=== PATIENT | female | born 1965 | race Caucasian/White ===

== ENCOUNTER 2023-06-08 09:10 | Emergency (ER) | payer MEDICAID ==
--- NOTE | 2023-06-08 09:13 | ERPHSYRPT ---
- History of Present Illness Time Seen by Provider: 06/08/23 09:13 Source: patient Exam Limitations: no limitations Physician History: This is a 57-year-old white female patient who does not have a primary care provider and injured back in December 2022. She corrected herself and that she did not fall in December 2022 but she was shoveling and digging when she first felt the pain. Her low back pain seemed to improve within the last month. However, in the last 2 to 3 days it was worsening. She sought medical evaluation at [facility] outpatient clinic where they gave her an injection of Toradol and then provided her with a prescription for muscle relaxant. No radiographic studies were performed. Patient states that the pain is in the lower back and shoots down posteriorly around her left buttock into her posterior left upper leg. She has no urinary incontinence. She has no bowel incontinence. She has no constipation. She has no numbness in her feet. Timing/Duration: day(s), worse Method of Injury: lifting, twisted, turning Quality: sharp, stabbing Back Pain Location: lumbar spine, paraspinous muscles Back Pain Radiation: buttocks (Left), upper legs (Posterior on the left) Severity of Pain-Max: moderate Modifying Factors: Improves With: movement Associated Symptoms: lower back pain, muscle spasms, No urinary incontinence, No loss of bowel control, No constipation, No problems urinating, No numbness in legs/feet Previous symptoms: same symptoms as today, no recent treatment Allergies/Adverse Reactions: No Known Drug Allergies Allergy (Unverified 06/08/23 09:29) Travel Risk - International Travel Have you traveled outside of the country in past 3 weeks: No - Coronavirus Screening Are you exhibiting any of the following symptoms?: No Close contact with a COVID-19 positive Pt in past 14-21 Days: No - Review of Systems Constitutional: No Symptoms Eyes: No Symptoms Ears, Nose, & Throat: No Symptoms Respiratory: No Symptoms Cardiac: No Symptoms Abdominal/Gastrointestinal: No Symptoms Genitourinary Symptoms: No Symptoms Musculoskeletal: Back Pain Skin: No Symptoms Neurological: No Symptoms Psychological: No Symptoms Endocrine: No Symptoms Hematologic/Lymphatic: No Symptoms Immunological/Allergic: No Symptoms All Other Systems: Reviewed and Negative - Past Medical History Pertinent Past Medical History: No - Past Surgical History Past Surgical History: Yes - Nursing Vital Signs Nursing Vital Signs: Initial Vital Signs Temperature 97.5 F 12/29/23 09:25 Pulse Rate 76 06/08/23 09:25 Respiratory Rate 18 06/08/23 09:25 Blood Pressure 179/93 06/08/23 09:25 O2 Sat by Pulse Oximetry 98 06/08/23 09:25 Pain Scale Pain Intensity [Left Back] 10 Pain Intensity 7 - Physical Exam General Appearance: no apparent distress, alert, anxiety Eye Exam: PERRL/EOMI, eyes nml inspection Ears, Nose, Throat Exam: normal ENT inspection, moist mucous membranes Neck Exam: normal inspection, non-tender, supple, full range of motion Respiratory Exam: airway intact, No chest tenderness, No respiratory distress Cardiovascular Exam: normal peripheral pulses Gastrointestinal Exam: No tenderness Pelvic Exam: not done Rectal Exam: not done Back Exam: normal inspection, decreased range of motion, muscle spasm, No CVA tenderness, No vertebral tenderness, No point tenderness Extremity Exam: normal inspection, normal range of motion, pelvis stable, No deformities Neurologic Exam: alert, oriented x 3, cooperative, guest service host II-XII nml as tested, normal mood/affect, nml cerebellar function, nml station & gait, sensation nml Skin Exam: normal color, warm, dry Lymphatic Exam: No adenopathy SpO2 Interpretation: normal O2 Delivery: Room Air - Course Nursing assessment & vital signs reviewed: Yes Ordered Tests: Active Orders 24 hr Category Date Time Status LUMBAR LIMITED (2 OR 3 VIEWS) Stat Exams 06/08/23 09:35 Taken Medication Summary Discontinued Medications Generic Name Dose Route Start Last Admin Trade Name Rahulq PRN Reason Stop Dose Admin Methylprednisolone Sodium 0 mg 06/08/23 09:37 06/08/23 09:47 Succinate 125 mg/ Sterile IM 06/08/23 09:38 125 mg Water 2 ml STAT ONE Administration Hydromorphone HCl 0.5 mg 06/08/23 09:36 06/08/23 09:48 Hydromorphone 1 Mg/1ml Inj IM 06/08/23 09:37 0.5 mg STAT ONE Administration Hydromorphone HCl Confirm 06/08/23 09:40 Hydromorphone 1 Mg/1ml Inj Administered 06/08/23 09:41 Dose 1 mg .ROUTE .STK-MED ONE Orphenadrine Citrate 60 mg 06/08/23 09:35 06/08/23 09:47 Orphenadrine Citrate 60 Mg/2 Ml Vial IM 06/08/23 09:36 60 mg STAT ONE Administration Orphenadrine Citrate Confirm 06/08/23 09:39 Orphenadrine Citrate 60 Mg/2 Ml Vial Administered 06/08/23 09:40 Dose 60 mg .ROUTE .STK-MED ONE Prochlorperazine Edisylate 5 mg 06/08/23 09:35 06/08/23 09:47 Prochlorperazine Edisylate 10 Mg/2 Ml Vial IM 06/08/23 09:36 5 mg STAT ONE Administration Prochlorperazine Edisylate Confirm 06/08/23 09:40 Prochlorperazine Edisylate 10 Mg/2 Ml Vial Administered 06/08/23 09:41 Dose 10 mg .ROUTE .STK-MED ONE Sterile Water Confirm 06/08/23 09:39 Water For Injection,Sterile 10 Ml Vial Administered 06/08/23 09:40 Dose 10 ml IJ .STK-MED ONE - Progress Progress: improved, pain not gone completely Progress Note: 06/08/23 09:42 This patient's medical issue is 1 of low complexity the level of complexity in the workup performed is based on review of the patient's past medical history, review the patient's medication list, review of the patient's drug allergy list, history of present illness and physical findings on examination. Workup in this patient includes lumbar spine x-rays. Will also provide injectable, intramuscular Compazine, Dilaudid, orphenadrine and oral Zofran ODT. Patient is aware I will not be providing her any narcotics as an outpatient. However, I will remotely send a prescription for orphenadrine and steroids to her pharmacy. Patient is aware that the MRI test is an outpatient test and not emergency room radiographic study. She does not have a primary care provider and we will provide her with a list of primary care providers who are accepting patients. We will also have the front end engineer individuals help the patient in securing some type of insurance by providing the patient with paperwork to fill out here while she is in the emergency department. The patient is aware that she needs to make sure she follows up with the insurance individuals. 06/08/23 10:36 I interpreted the lumbar x-ray series. There is no evidence of any acute fracture or subluxation. Counseled pt/family regarding: diagnosis, need for follow-up, rad results Medical Desision Making - Diagnostic Testing Diagnostic test were ordered, analyzed, and reviewed by me: Yes Radiological Interpretation: Reviewed by me, Teleradiologist Report - Risk of complications The pt has a mod risk of morbidity or mortality based on: Need for prescription drug management - Departure Departure Disposition: Home Clinical Impression: Acute exacerbation of chronic low back pain, Hypertension Condition: Stable Critical Care Time: No Additional Instructions: Take your medications as prescribed. Stop any prior muscle relaxant and use the medication that I remotely sent to your pharmacy. Call and make an appointment with a primary care provider (list provided) for the next 3 to 5 days to discuss back pain management and hypertension issues. Prescriptions: Prednisone 10 mg [Deltasone 10 mg] 10 mg PO TID #12 tablet Orphenadrine Citrate 100 mg [Norflex 100 MG Tablet] 100 mg PO BID #10 tab
[2023-06-08 09:26] VITALS: TEMP 97.5
[2023-06-08] MEDS ORDERED: Compazine 10 MG/2 ML IM ONE (09:35)
[2023-06-08] MEDS ORDERED: Norflex 60 MG/2 ML IM ONE (09:35)
[2023-06-08] MEDS ORDERED: Hydromorphone 1 mg/ml Injection IM ONE (09:36)
[2023-06-08] MEDS ORDERED: solu-MEDROL 125 MG, Sterile H2O 10 ml 2 ML IM ONE ×2 (09:37)
[2023-06-08] MEDS ORDERED: Norflex 60 MG/2 ML ONE (09:39)
[2023-06-08] MEDS ORDERED: Sterile H2O 10 ml IJ ONE (09:39)
[2023-06-08] MEDS ORDERED: Compazine 10 MG/2 ML ONE (09:40)
[2023-06-08] MEDS ORDERED: Hydromorphone 1 mg/ml Injection ONE (09:40)
--- NOTE | 2023-06-08 10:38 | XRAY ---
Indication: Low back pain. Comparison: None 3 view lumbar spine demonstrates 6 lumbar segments with partial sacralized L6. Mild L4-L6 degenerative changes with disc space narrowing and endplate sclerosis/spurring. 3-4 mm anterolisthesis L4 on L5. No acute fracture or suspicious bony lesions. Minimal aortic calcifications. Incidental mild diffuse scattered colonic fecal debris and small left lung base calcified granuloma. Impression: Nonacute lumbar spine with chronic features. Incidental fecal stasis.
[2023-06-08 10:59] VITALS: BP 161/100; PULSE 72; RESP 14; O2SAT 94
== END 2023-06-08 11:00 | disposition home or self-care (01) ==
LOC: ED 09:10
DX: G89.29 Other chronic pain (principal); M54.50 Low back pain, unspecified; I10 Essential (primary) hypertension; Z79.52 Long term (current) use of systemic steroids
CPT/HCPCS: 72100; 96372; 99284; J1170; J2360; J2930

== ENCOUNTER 2023-06-15 15:27 | Emergency (ER) | payer MEDICAID ==
[2023-06-15] MEDS ORDERED: Hydromorphone 1 mg/ml Injection IV ONE (15:40)
[2023-06-15] MEDS ORDERED: Compazine 10 MG/2 ML IV ONE (15:40)
[2023-06-15] MEDS ORDERED: Sodium Chloride 0.9% 1000 ML 1,000 ML IV STA (15:40)
--- NOTE | 2023-06-15 15:40 | ERPHSYRPT ---
- History of Present Illness Time Seen by Provider: 06/15/23 15:39 Source: patient, EMS Exam Limitations: no limitations Patient Subjective Stated Complaint: syncope Triage Nursing Assessment: patient was at pio piedra's office for sciatica pain and became pale/diaphoretic and had a syncopal episode. ambulance was called and pateint was brought to the ER Physician History: This is an obese 57-year-old white female patient who was seen by me for the same issue on 06/08/2023. The lumbar x-ray series was performed and interpreted by the radiologist and this was a normal, nonacute study. Patient was at nurse derian Piedra's office for her first, initial visit with this provider. In the office, the patient had severe pain going down her left buttock and left leg. She became pale and diaphoretic and "passed out". She did not hit her head. She did not lose consciousness. Patient denies chest pain patient denies shortness of breath. Patient was brought to the emergency department by the paramedics who provided additional, independent history of the events that occurred at the office of nurse derian Piedra. Patient has a history of chronic low back pain and hypertension. On 06/08/2023, patient received a prescription for prednisone and orphenadrine Timing/Duration: today Method of Injury: other (No fall or new injury) Quality: sharp, stabbing Back Pain Location: lumbar spine Back Pain Radiation: buttocks (Left side), upper legs (Left side) Severity of Pain-Max: moderate Severity of Pain-Current: moderate Modifying Factors: Improves With: movement Associated Symptoms: lower back pain, muscle spasms, No urinary incontinence, No loss of bowel control, No numbness in legs/feet, No tingling in legs/feet Previous symptoms: same symptoms as today, recently seen, recently treated Allergies/Adverse Reactions: No Known Drug Allergies Allergy (Unverified 06/15/23 16:26) Hx Influenza Vaccination/Date Given: No Hx Pneumococcal Vaccination/Date Given: No Travel Risk - International Travel Have you traveled outside of the country in past 3 weeks: No - Coronavirus Screening Are you exhibiting any of the following symptoms?: No Close contact with a COVID-19 positive Pt in past 14-21 Days: No - Vaccine Status Have you recieved a Covid-19 vaccination: No - Review of Systems Constitutional: No Symptoms Eyes: No Symptoms Ears, Nose, & Throat: No Symptoms Respiratory: No Symptoms Cardiac: No Symptoms Abdominal/Gastrointestinal: No Symptoms Genitourinary Symptoms: No Symptoms Musculoskeletal: Back Pain, No Fall, No Injury Skin: No Symptoms Neurological: No Symptoms Psychological: No Symptoms Endocrine: No Symptoms Hematologic/Lymphatic: No Symptoms Immunological/Allergic: No Symptoms All Other Systems: Reviewed and Negative - Past Medical History Pertinent Past Medical History: No - Past Surgical History Past Surgical History: Yes Female Surgical History: Hysterectomy - Social History Smoking Status: Never smoker Exposure to second hand smoke: No Drug Use: marijuana Patient Lives Alone: No - Nursing Vital Signs Nursing Vital Signs: Initial Vital Signs Pulse Rate 75 06/15/23 15:31 Respiratory Rate 14 06/15/23 15:31 Blood Pressure 181/112 06/15/23 15:31 O2 Sat by Pulse Oximetry 99 06/15/23 15:31 Pain Scale Pain Intensity 10 - Physical Exam General Appearance: mild distress (To moderate), alert, anxiety, obese Eye Exam: PERRL/EOMI, eyes nml inspection Ears, Nose, Throat Exam: normal ENT inspection, moist mucous membranes Neck Exam: normal inspection, non-tender, supple, full range of motion Respiratory Exam: normal breath sounds, lungs clear, airway intact, No chest tenderness, No respiratory distress Cardiovascular Exam: regular rate/rhythm, normal heart sounds, normal peripheral pulses Gastrointestinal Exam: soft, normal bowel sounds, No tenderness Pelvic Exam: not done Rectal Exam: not done Back Exam: normal inspection, decreased range of motion, muscle spasm, No CVA tenderness Extremity Exam: normal inspection, normal range of motion, pelvis stable Neurologic Exam: alert, oriented x 3, cooperative, lumpia wrapper maker II-XII nml as tested, normal mood/affect, nml cerebellar function, nml station & gait, sensation nml Skin Exam: normal color, warm, dry Lymphatic Exam: No adenopathy SpO2 Interpretation: normal SpO2: 99 O2 Delivery: Room Air - Course Nursing assessment & vital signs reviewed: Yes Ordered Tests: Active Orders 24 hr Category Date Time Status EKG-ER Only STAT Care 06/15/23 15:40 Active IV Insertion STAT Care 06/15/23 15:40 Active ABDOMEN AND PELVIS W/0 CONTRAS [CT] Stat Exams 06/15/23 15:41 Completed RECONSTRUCTION [CT] Stat Exams 06/15/23 15:41 Completed CBC W DIFF Stat Lab 06/15/23 16:00 Completed CMP Stat Lab 06/15/23 16:00 Completed TROPONIN Q4H Lab 06/15/23 16:00 Completed TROPONIN Q4H Lab 06/15/23 19:45 Ordered TROPONIN Q4H Lab 06/15/23 23:45 Ordered UA W/RFX UR CULTURE Stat Lab 06/15/23 15:40 Ordered Medication Summary Discontinued Medications Generic Name Dose Route Start Last Admin Trade Name Veronica PRN Reason Stop Dose Admin Methylprednisolone Sodium 0 mg 06/15/23 15:42 06/15/23 15:55 Succinate 125 mg/ Sterile IV 06/15/23 15:43 125 mg Water 2 ml STAT ONE Administration Hydromorphone HCl 1 mg 06/15/23 15:40 06/15/23 15:57 Hydromorphone 1 Mg/1ml Inj IV 06/15/23 15:41 1 mg STAT ONE Administration Hydromorphone HCl Confirm 06/15/23 15:48 Hydromorphone 1 Mg/1ml Inj Administered 06/15/23 15:49 Dose 1 mg .ROUTE .STK-MED ONE Sodium Chloride 1,000 mls @ 999 mls/hr 06/15/23 15:40 06/15/23 17:12 Sodium Chloride 0.9% 1000 Ml IV 06/15/23 16:40 Infused .Q1H1M STA Infusion Sodium Chloride Confirm 06/15/23 15:48 Sodium Chloride 0.9% 1000 Ml Administered 06/15/23 15:49 Dose 1,000 mls @ ud .ROUTE .STK-MED ONE Methylprednisolone Sodium Succinate Confirm 06/15/23 15:48 Methylprednis Sod Succ 125 Mg/2 Ml Vial Administered 06/15/23 15:49 Dose 125 mg .ROUTE .STK-MED ONE Prochlorperazine Edisylate 5 mg 06/15/23 15:40 06/15/23 15:53 Prochlorperazine Edisylate 10 Mg/2 Ml Vial IV 06/15/23 15:41 5 mg STAT ONE Administration Prochlorperazine Edisylate Confirm 06/15/23 15:48 Prochlorperazine Edisylate 10 Mg/2 Ml Vial Administered 06/15/23 15:49 Dose 10 mg .ROUTE .STK-[employer] ONE Sterile Water Confirm 06/15/23 15:47 Water For Injection,Sterile 10 Ml Vial Administered 06/15/23 15:48 Dose 10 ml IJ .Priceline-MED ONE Lab/Rad Data: Laboratory Result Diagrams 06/15/23 16:00 06/15/23 16:00 Laboratory Results 06/15/23 06/15/23 06/15/23 Range/Units 16:00 16:00 16:00 WBC 9.5 (4.0-10.5) x10^3/uL RBC 4.69 (4.1-5.4) x10^6/uL Hgb 13.2 (12.0-16.0) g/dL Hct 41.6 (35-47) % MCV 88.7 (78-100) fL MCH 28.1 (26-32) pg MCHC 31.7 L (32-36) g/dL RDW 13.4 (11.5-14.0) % Plt Count 290 (150-450) x10^3/uL MPV 10.2 (7.5-11.0) fL Gran % 53.9 (36.0-66.0) % Immature Gran % (Auto) 0.3 (0.00-0.4) % Nucleat RBC Rel Count 0.0 (0.00-0.1) % Eos # (Auto) 0.66 H (0-0.5) x10^3/uL Immature Gran # (Auto) 0.03 (0.00-0.03) x10^3u/L Absolute Lymphs (auto) 3.11 (1.0-4.6) x10^3/uL Absolute Monos (auto) 0.53 (0.0-1.3) x10^3/uL Absolute Nucleated RBC 0.00 (0.00-0.01) x10^3u/L Lymphocytes % 32.8 (24.0-44.0) % Monocytes % 5.6 (0.0-12.0) % Eosinophils % 7.0 H (0.00-5.0) % Basophils % 0.4 (0.0-0.4) % Absolute Granulocytes 5.10 (1.4-6.9) x10^3/uL Basophils # 0.04 (0-0.4) x10^3/uL Sodium 137 (137-145) mmol/L Potassium 3.5 (3.5-5.1) mmol/L Chloride 104 (98-107) mmol/L Carbon Dioxide 23 (22-30) mmol/L Anion Gap 13.1 (5-15) MEQ/L BUN 18 H (7-17) mg/dL Creatinine 0.68 (0.52-1.04) mg/dL Estimated GFR 101.5 ML/MIN Glucose 113 H (74-106) mg/dL Calcium 9.5 (8.4-10.2) mg/dL Total Bilirubin 0.40 (0.2-1.3) mg/dL AST 20 (14-36) U/L ALT 27 (0-35) U/L Alkaline Phosphatase 90 (38-126) U/L Troponin I < 0.012 (0.000-0.034) ng/mL Serum Total Protein 7.8 (6.3-8.2) g/dL Albumin 4.2 (3.5-5.0) g/dL - Progress Progress: improved, pain not gone completely, re-examined Progress Note: 06/15/23 16:23 This patient's medical issue is 1 of moderate complexity. Level complex in the workup performed is based on review the patient's past medical history, review the patient's medication list, history present illness and physical findings on examination. This patient's workup includes placement of intravenous line, twelve-lead EKG troponin level, urinalysis, CT scan of abdomen pelvis with lumbar reconstruction, infusion of Dilaudid 1 mg and infusion of Compazine 5 mg, infusion of Solu-Medrol. 06/15/23 17:34 I reviewed and interpreted the patient's laboratory data results. There is no evidence of any acute, emergent findings on the laboratory studies. CT scan of the abdomen pelvis was interpreted by the radiologist and I reviewed the impression. Impression states mildly distended gallbladder. No free air or free fluid. There is mild aortoiliac calcifications without abdominal aortic aneurysm. There is minimal sigmoid diverticulosis without diverticulitis. CT scan reconstruction of the lumbar spine was interpreted by the radiologist and I reviewed the impression. Impression states L3-S1 disc bulge at L3 and L4 there is spinal stenosis due to combination of disc bulge and significant bilateral degenerative facet hypertrophy and 4 to 5 mm anterolisthesis of L3 on L4. There is lesser spinal canal narrowing at L4-L5. There is no acute fracture or subluxation. 06/15/23 18:07 I spoke with neurosurgeon Dr. Gutierres. He had actually reviewed and interpreted the films for himself. His recommendation is that the patient follows up with her primary care provider next week to obtain an outpatient MRI of the lumbar spine and then, depending on the findings of the lumbar spine, referral to a spinal surgeon. Counseled pt/family regarding: diagnosis, need for follow-up, rad results Medical Desision Making - Diagnostic Testing Diagnostic test were ordered, analyzed, and reviewed by me: Yes Radiological Interpretation: Reviewed by me, Teleradiologist Report - Risk of complications The pt has a mod risk of morbidity or mortality based on: Need for prescription drug management - Departure Clinical Impression: Central stenosis of spinal canal, Bulging lumbar disc, Back pain with sciatica Condition: Stable Critical Care Time: No Referrals: DOCTOR,NO FAMILY [NON-STAFF PHY W/O PRIVILEGES] - Follow up/PCP as directed Additional Instructions: Take your medications as prescribed. Call your primary care provider on 06/18/2023 for further evaluation and management including making arrangements for a MRI of lumbar spine Prescriptions: Oxycodone HCl/Acetaminophen [Percocet 5-325 mg Tablet] 1 each PO Q8H PRN PRN #6 tablet MDD 3 PRN Reason: Moderate To Severe Pain Prednisone 10 mg [Deltasone 10 mg] 10 mg PO TID #12 tablet Orphenadrine Citrate 100 mg [Norflex 100 MG Tablet] 100 mg PO BID #10 tab
[2023-06-15] MEDS ORDERED: solu-MEDROL 125 MG, Sterile H2O 10 ml 2 ML IV ONE ×2 (15:42)
[2023-06-15] MEDS ORDERED: Sterile H2O 10 ml IJ ONE (15:47)
[2023-06-15] MEDS ORDERED: Sodium Chloride 0.9% 1000 ML 1,000 ML ONE (15:48)
[2023-06-15] MEDS ORDERED: Compazine 10 MG/2 ML ONE (15:48)
[2023-06-15] MEDS ORDERED: solu-MEDROL ONE (15:48)
[2023-06-15] MEDS ORDERED: Hydromorphone 1 mg/ml Injection ONE (15:48)
[2023-06-15 16:12] LABS: BASOPHIL % 0.4 % (0.0-0.4); Basophil (Absolute #) 0.04 x10^3/uL (0-0.4); Eosinophil (Absolute #) 0.66 x10^3/uL (0-0.5); Hematocrit 41.6 % (35-47); Hemoglobin 13.2 g/dL (12.0-16.0); IMMATURE GRAN # 0.03 x10^3u/L (0.00-0.03); IMMATURE GRAN % 0.3 % (0.00-0.4); Lymphocyte (Absolute #) 3.11 x10^3/uL (1.0-4.6); Lymphocytes % 32.8 % (24.0-44.0); Mean Cell Volume 88.7 fL (78-100); Mean Corpuscular Hemoglobin 28.1 pg (26-32); Mean Corpuscular Hgb Concent. 31.7 g/dL (32-36); Mean Platelet Volume 10.2 fL (7.5-11.0); Monocyte (Absolute #) 0.53 x10^3/uL (0.0-1.3); Monocytes % 5.6 % (0.0-12.0); Neutrophil % 53.9 % (36.0-66.0); Platelet Count 290 x10^3/uL (150-450); Red Blood Count 4.69 x10^6/uL (4.1-5.4); Red Cell Distribution Width 13.4 % (11.5-14.0); White Blood Count 9.5 x10^3/uL (4.0-10.5)
[2023-06-15 16:24] LABS: ALBUMIN 4.2 g/dL (3.5-5.0); ANION GAP 13.1 MEQ/L (5-15); BILIRUBIN,TOTAL 0.4 mg/dL (0.2-1.3); Calcium 9.5 mg/dL (8.4-10.2); Creatinine 1 0.68 mg/dL (0.52-1.04); EST GLOMERULAR FILTRATION RATE 101.5 ML/MIN; Potassium 3.5 mmol/L (3.5-5.1); Total Protein 7.8 g/dL (6.3-8.2)
--- NOTE | 2023-06-15 16:43 | XRAY ---
Indication: Back and flank pain. Multiple contiguous axial images obtained through the abdomen and pelvis without contrast. Comparison: None Lung bases demonstrates minimal dependent atelectasis and small left base calcified granuloma. Heart not enlarged. Small hiatal hernia. Stomach distended with food/fluid. Gallbladder is mildly distended, abnormal in this postprandial patient. Noncontrasted stomach and bowel loops appear nonobstructed with normal appendix. Minimal sigmoid diverticulosis without diverticulitis. A few tiny splenic calcified granulomas and previous hysterectomy. No free fluid/air. Remaining liver, gallbladder, pancreas, spleen, adrenal glands, kidneys, ureters, and bladder are unremarkable for noncontrast exam. Mild aortoiliac calcifications without AAA. Osseous structures intact with minimal/mild degenerative changes throughout the thoracolumbar spine and minimal levoscoliosis centered at L3. Impression: 1. Mild distended gallbladder, abnormal in this postprandial patient. 2. Chronic findings including small hiatal hernia, sigmoid diverticulosis, arteriosclerotic disease, chronic bony findings, and old granulomatous disease.
--- NOTE | 2023-06-15 16:47 | XRAY ---
Indication: Low back pain with left sciatica. Sagittal, coronal, and axial reformatted images lumbar spine obtained using raw data from same day CT evidence/pelvis exam. Comparison: None Axial images demonstrates moderate broad-based L3-S1 disc bulge and L4-L5 degenerative vacuum disc phenomena. At L3-L4 level, there is spinal canal stenosis due to combination of disc bulge, significant bilateral degenerative facet hypertrophy, and 4-5 mm anterolisthesis of L3 on L4. Lesser spinal canal narrowing at L4-L5. Remaining levels negative for acute compression fracture or subluxation. CT abdomen/pelvis reported separately. Impression: L3-S1 degenerative disc disease with L3-L4 spinal canal stenosis as detailed. Outpatient MRI may yield further information.
[2023-06-15 17:10] VITALS: BP 179/81; PULSE 73; RESP 12
[2023-06-15 17:37] VITALS: O2SAT 99
== END 2023-06-15 18:59 | disposition home or self-care (01) ==
LOC: ED 15:27
DX: M48.061 Spinal stenosis, lumbar region without neurogenic claudication (principal); M51.36 Other intervertebral disc degeneration, lumbar region; M54.42 Lumbago with sciatica, left side; R55 Syncope and collapse; I10 Essential (primary) hypertension; Z79.52 Long term (current) use of systemic steroids; Z79.891 Long term (current) use of opiate analgesic; Z28.310 Unvaccinated for COVID-19
CPT/HCPCS: 36000; 36415; 74176; 76376; 80053; 84484; 85025; 93005; 96374; 96375; 99284; J1170; J2930

== ENCOUNTER 2023-08-22 07:29 | Day surgery (SDC) | payer BC, OTHER ==
[2023-08-22] MEDS ORDERED: Decadron 4 MG INJ IV ONE (07:30)
[2023-08-22] MEDS ORDERED: Sodium Chloride 0.9(Preservative Free) 10 ML IJ ONE (07:30)
[2023-08-22] MEDS ORDERED: LIDOCAINE HCL 1% 50 MG/5 ML VL PF IJ ONE (07:30)
[2023-08-22] MEDS ORDERED: DIPRIVAN 200 MG/20 ML IV ONE ×2 (09:56→10:09)
--- NOTE | 2023-08-22 12:01 | XRAY ---
Indication: Left L4-S1 transforaminal RUSSEL. Intraoperative fluoroscopy provided for 24 seconds. 4 digital spot images submitted for interpretation demonstrates posterior needle tips projecting over expected left L4 and L5 nerve roots spine. Small amount of contrast injected for needle tip placement. Correlate with intraoperative findings/report.
--- NOTE | 2023-08-22 12:01 | XRAY ---
Indication: Left piriformis injection. Intraoperative fluoroscopy provided for 10 seconds. 2 digital spot images submitted for interpretation demonstrates posterior needle tip projecting over left piriformis. Small amount of contrast injected for needle tip placement. Correlate with intraoperative findings/report.
--- NOTE | 2023-08-22 12:27 | XRAY ---
24 seconds of fluoroscopy was used in surgery for a left L4-S1 transforaminal RUSSEL.
--- NOTE | 2023-08-22 12:27 | XRAY ---
10 seconds of fluoroscopy was used in surgery for a left piriformis injection.
[2023-08-22] MEDS ORDERED: Lactated Ringers 1,000 ML IV ONE (15:00)
== END 2023-08-22 10:40 | disposition home or self-care (01) ==
LOC: SDC-PAIN 07:29
PROVIDERS: ATTEND Psychiatry & Neurology Pain Medicine
DX: M54.16 Radiculopathy, lumbar region (principal)
CPT/HCPCS: 20552; 64483; 64484; 72100; 72170; 77002; 77003; J1100; J2001; J2704; Q9966